=== PATIENT | female | born 1960 | race Hispanic/Latino ===

== ENCOUNTER 2018-12-12 06:41 | Emergency (ER) | payer BC, OTHER ==
[2018-12-12] MEDS ORDERED: KETOROLAC TROMETHAMINE 60 MG/2 ML VIAL ONE (07:36)
[2018-12-12] MEDS ORDERED: DIAZEPAM 5 MG TABLET ONE (07:37)
== END 2018-12-12 09:48 | disposition home or self-care (01) ==
LOC: EDH 06:41
DX: M25.511 Pain in right shoulder (principal); Z90.710 Acquired absence of both cervix and uterus
CPT/HCPCS: 73030; 96372; 99284; J1885

== ENCOUNTER → 2022-02-17 | Outpatient (CLI) | payer OTHER | END | disposition home or self-care (01) | LOC: SHCH 07:41 | PROVIDERS: ATTEND Internal Medicine Cardiovascular Disease | DX: I87.2 Venous insufficiency (chronic) (peripheral) (principal) | CPT/HCPCS: 93970 ==